=== PATIENT | female | born 1995 | race Caucasian/White ===

== ENCOUNTER 2022-04-16 10:44 | Outpatient (RCR) | payer OTHER, SELFPAY ==
[2022-04-16 12:10] LABS: Hematocrit 31.4 % (37.0-47.0); Hemoglobin 10.6 g/dL (12.0-15.0)
[2022-04-16 12:18] LABS: Glucose 1 Hour PP 50gm Dose 154 mg/dL
[2022-04-16 12:59] LABS: HIV 1/2 Ab P24 Ag Result Negative (Negative)
[2022-04-17] MEDS: RHO(D) IMMUNE GLOBULIN 300 MCG/2 ML SYRINGE IM (13:03)
== END 2022-07-15 23:59 | disposition home or self-care (01) ==
LOC: ANHLAB 10:44
PROVIDERS: Visit Provider Obstetrics & Gynecology
DX: Z11.4 Encounter for screening for human immunodeficiency virus [HIV] (principal); Z29.13 Encounter for prophylactic Rho(D) immune globulin; O36.0130 Maternal care for anti-D [Rh] antibodies, third trimester, not applicable or unspecified; Z3A.00 Weeks of gestation of pregnancy not specified
CPT/HCPCS: 36415; 82947; 85014; 85018; 85461; 86703; 90384; 96372; G0432; J2790

== ENCOUNTER 2022-07-02 08:35 | Outpatient (CLI) | payer OTHER, SELFPAY ==
[2022-07-02 09:15] VITALS: BP 107/69; PULSE 91
[2022-07-02 09:32] VITALS: BP 107/69; PULSE 92
== END 2022-07-02 09:40 | disposition home or self-care (01) ==
LOC: ANHOBOP 09:15 → ANHLDR 09:16
PROVIDERS: Visit Provider Obstetrics & Gynecology
DX: O41.8X90 Other specified disorders of amniotic fluid and membranes, unspecified trimester, not applicable or unspecified (principal); Z3A.00 Weeks of gestation of pregnancy not specified
CPT/HCPCS: 59025; 84112; 99199

== ENCOUNTER 2022-07-07 05:00 | Inpatient (IN) | payer OTHER, SELFPAY ==
[2022-07-07] VITALS (161 sets, daily range): BP systolic 68–139; BP diastolic 35–80; PULSE 58–118; RESP 14–18; TEMP 36.2–37.2; O2SAT 97–100; BMI 30.2
--- NOTE | 2022-07-07 05:21 | LDADM ---
This patient, Arely Kendrick, was admitted to Labor/Delivery/Recovery 106 on 07/07/22 at 05:00. Plans for labor, pain management and were discussed with patient. Patient/family oriented to hospital policies and general routines including ID bracelet, bed and alarms, visiting hours, pain management, procedures, bathroom and other care routines, personal items, smoking policy, room service/diet and guest tray routines, infant security routines, and visiting hours. Patient/Family are encouraged to report perceived risks to care and to ask questions if they do not understand what they are told or what they should do. See OBIX for further documentation.
[2022-07-07 05:36] LABS: Basophils Percent Auto 0.4 % (0.2-1.2); Eosinophils Absolute Auto 0.1 K/mm3 (0-0.3); Eosinophils Percent Auto 0.6 % (0-4.4); Hemoglobin 10.6 g/dL (12.0-15.0); Immature Granulocyte Absolute 0.18 K/mm3 (0.00-0.031); Immature Granulocyte Percent A 1.9 % (0-0.5); Lymphocytes Absolute Auto 1.88 K/mm3 (0.9-3.2); Mean Corpuscular HGB Conc 35.3 g/dl (32-36); Mean Corpuscular Hemoglobin 32.4 pg (26-34); Mean Corpuscular Volume 91.7 fl (80-100); Mean Platelet Volume 9.1 fl (7.4-10.4); Monocytes Absolute Auto 0.7 K/mm3 (0.1-0.6); Monocytes Percent Auto 7.5 % (2.6-8.5); Neutrophils Absolute Auto 6.5 K/mm3 (1.3-6.7); Neutrophils Percent Auto 69.6 % (45.5-73.1); Platelet Count Result 270 k/mm3 (150-375); Red Blood Count 3.27 M/mm3 (4.2-5.4); Red Cell Distribution Width 12.7 % (11.5-14.5); White Blood Count 9.4 K/mm3 (4.5-10.0)
[2022-07-07] MEDS: LACTATED RINGERS 1,000 ML 125 ML IV CONT ×2 (05:42→09:20)
[2022-07-07] MEDS: OXYTOCIN 30 UNITS/NS 500 ML 30 UNITS/500 ML BAG IV CONT (05:42)
[2022-07-07 05:54] LABS: Amphetamine Screen Urine Negative (Negative); Barbiturate Screen Urine Negative (Negative); Benzodiazepines Screen Urine Negative (Negative); Cannabinoid Screen Urine Positive (Negative); Cocaine Screen Urine Negative (Negative); Methadone Screen Urine Negative (Negative); Opiate Screen Urine Negative (Negative); Phencyclidine Screen Urine Negative (Negative)
--- NOTE | 2022-07-07 08:42 | WPDHPUPDATE1 ---
History and Physical Update Update Date/Time: 07/07/22 08:42 27-year-old 1 at 39 week who presents for induction of labor. Pitocin, artificial rupture membranes have been applied. Reassuring heart tones. Expected management, likely epidural. History and Physical has been reviewed, including an updated exam of the patient. There are NO changes in the patient's condition. Risks, benefits, and alternatives have been discussed and questions answered. Patient agrees to proceed with procedure.
--- NOTE | 2022-07-07 09:44 | WPDANESEPP ---
Anes - Eval Pre Procedure Procedure: Labor Epidural Date/Time: 07/07/22 09:44 Preop Diagnosis: Pain during labor Pre Op Diagnosis: IOL Patient Data Age: 27 Gender: F Height: 1.57 m Weight: 75 kg Last Vital Signs Temp 36.8 C 07/07/22 08:33 Pulse 118 H 07/07/22 09:30 Resp 16 07/07/22 05:32 BP 123/70 07/07/22 09:30 Pulse Ox 100 07/07/22 09:43 O2 Del Method Room Air 07/07/22 05:19 Allergies Allergy/AdvReac Type Severity Reaction Status Date / Time amoxicillin Allergy Mild Swelling Verified 07/07/22 05:16 Home Medications Medication Instructions Recorded Confirmed Type prenat.vits,nini,lxx-jyig-jjdby 1 tablet PO DAILY 06/08/22 07/07/22 History Laboratory Tests 07/07/22 07/07/22 07/07/22 05:28 05:28 05:28 WBC 9.4 K/mm3 K/mm3 (4.5-10.0) RBC 3.27 M/mm3 L M/mm3 (4.2-5.4) Hgb 10.6 g/dL L g/dL (12.0-15.0) Hct 30.0 % L % (37.0-47.0) MCV 91.7 fl fl (80-100) MCH 32.4 pg pg (26-34) MCHC 35.3 g/dl g/dl (32-36) RDW 12.7 % % (11.5-14.5) Plt Count 270 k/mm3 k/mm3 (150-375) MPV 9.1 fl fl (7.4-10.4) Immature Gran % (Auto) 1.9 % H % (0-0.5) Neut % (Auto) 69.6 % % (45.5-73.1) Lymph % (Auto) 20.0 % % (18.3-44.2) [place] % (Auto) 7.5 % % (2.6-8.5) Eos % (Auto) 0.6 % % (0-4.4) Baso % (Auto) 0.4 % % (0.2-1.2) Lymph # (Auto) 1.88 K/mm3 K/mm3 (0.9-3.2) [place] # (Auto) 0.7 K/mm3 H K/mm3 (0.1-0.6) Eos # (Auto) 0.1 K/mm3 K/mm3 (0-0.3) Baso # (Auto) 0.0 K/mm3 K/mm3 (0.0-0.1) Abs Immat Gran (auto) 0.18 K/mm3 H K/mm3 (0.00-0.031) Absolute Neuts (auto) 6.5 K/mm3 K/mm3 (1.3-6.7) Absolute Nucleated RBC 0.0 K/mm3 K/mm3 (0.0-0.012) Nucleated RBC % 0.0 % % (0.0-0.2) Urine Opiates Screen Urine Methadone Screen Ur Barbiturates Screen Ur Phencyclidine Scrn Ur Amphetamine Screen U Benzodiazepines Scrn Urine Cocaine Screen U Cannabinoids Screen RPR Pending Blood Type B Negative Antibody Screen Pending 07/07/22 05:28 WBC RBC Hgb Hct MCV MCH MCHC RDW Plt Count MPV Immature Gran % (Auto) Neut % (Auto) Lymph % (Auto) [place] % (Auto) Eos % (Auto) Baso % (Auto) Lymph # (Auto) [place] # (Auto) Eos # (Auto) Baso # (Auto) Abs Immat Gran (auto) Absolute Neuts (auto) Absolute Nucleated RBC Nucleated RBC % Urine Opiates Screen Negative (Negative) Urine Methadone Screen Negative (Negative) Ur Barbiturates Screen Negative (Negative) Ur Phencyclidine Scrn Negative (Negative) Ur Amphetamine Screen Negative (Negative) U Benzodiazepines Scrn Negative (Negative) Urine Cocaine Screen Negative (Negative) U Cannabinoids Screen Positive A (Negative) RPR Blood Type Antibody Screen Patient hx anesthesia problems: none Family hx anesthesia problems: none Results Review: All pre-operative results and documents have been reviewed as part of the pre-operative evaluation. 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
[2022-07-07] MEDS: ONDANSETRON INJ 4 MG/2 ML VIAL IV PUSH (12:56)
--- NOTE | 2022-07-07 14:09 | PM.IMHP ---
H&P: HPI History of Present Illness Date/Time: 07/07/22 14:09 Chief Complaint: Labor Narrative: 27-year-old 1 at 39 weeks gestation who presented in for induction of labor. She has been in labor without problem for few hours until the hand presentation was noticed. heart tones were also nonreassuring with some prolonged heart rate deceleration . She had early heart rate decelerations and late decelerations alternating with each contraction. Attempted to reduce the hand presentation but it was incomplete reduction with the hand alongside the head. The head was malpositioned and abnormal heart tones persisted. She denies any nausea, vomiting, fever, chills. She denies any chest pain or shortness of breath. The procedure were explained the patient in detail. She understands these risks. She understands that injuries may occur that result in hospitalization, more surgery, and severe illness. She understands that her risk of hemorrhage infection. She understands the risks, benefits, and alternatives. She has completed the informed consent process is ready to proceed. Review of Systems Review of Systems: All systems reviewed & are unremarkable except as noted in HPI and below Constitutional: Constitutional: Denies chills, Denies fatigue, Denies fever(s) and Denies weakness Eyes: Eyes: Denies blurry vision, Denies change in vision, Denies loss of peripheral vision, Denies loss of vision, Denies other visual disturbances and Denies eye pain ENT: Denies vertigo, Denies dizziness, Denies hearing loss, Denies mouth pain, Denies nasal obstruction, Denies neck mass and Denies neck pain Cardiovascular: Cardiovascular: Denies chest pain, Denies diaphoresis, Denies syncope, Denies leg edema and Denies dyspnea Respiratory: Respiratory: Denies chest congestion, Denies cough, Denies hemoptysis, Denies dyspnea and Denies wheezing Gastrointestinal: Gastrointestinal: Denies abdominal pain, Denies constipation, Denies diarrhea, Denies nausea and Denies vomiting Genitourinary: Genitourinary: Denies hematuria, Denies change in libido, Denies nocturia, Denies genital lesions, Denies flank pain and Denies urinary urgency Musculoskeletal: Musculoskeletal: Denies abnormal gait, Denies back pain, Denies myalgias, Denies arthralgias, Denies joint swelling, Denies muscle weakness and Denies neck pain Integumentary/Breasts: Skin/Breast: Denies swelling, Denies breast pain, Denies breast mass, Denies dry skin, Denies nipple discharge, Denies unusual bruising and Denies jaundice Neurologic: Denies Neuro-related abnormal movements, Denies Abnormal speech present, Denies abnormal gait, Denies behavioral changes, Denies confusion, Denies vertigo, Denies dizziness, Denies syncope, Denies loss of vision, Denies memory loss, Denies convulsions and Denies weakness Psychiatric: Psychiatric: Denies abnormal sleep pattern, Denies behavioral changes, Denies change in libido, Denies confusion, Denies depression, Denies anhedonia and Denies memory loss Endocrine: Endocrine: Reports no additional endocrine complaints, Denies change in libido and Denies fatigue Hematologic/Lymphatic: Hematologic/Lymphatic: Reports no additional hematologic/lymphatic complaints Allergic/Immunologic: Allergic/Immunologic: Reports no additional allergic/immunologic complaints and Denies wheezing [facility] Family History Family History Other Unknown family medical history Social History Social History Smoking status: Former smoker Tobacco type: cigarettes and e-cigarettes/vaping Second hand tobacco smoke exposure: No Substance use: current Other substance usage details: 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
--- NOTE | 2022-07-07 15:01 | W.PM.PROC2 ---
Procedure Note - Detailed Date of Procedure 07/07/22 Pre-op Diagnosis IOL, malposition of the head, hand presentation, non-reassuring heart tones Post-op Diagnosis Same Procedure Performed Low-transverse section Surgeon Queenie Bravo MD Anesthesia Spinal Indications malpresentation the head, hand presentation, nonreassuring heart tones. Findings Normal gestational maternal anatomy, average size , normal Apgars. Description of Procedure The patient was taken the operating room. She was prepped and draped in dorsal supine position with a leftward tilt. This was done after spinal anesthetic was applied. A low-transverse skin incision was made and carried down till of the fascia with the knife. The fascial incision was made with the knife. The fascial incision was extended laterally with Weber scissors. The fascia was tented upward superiorly and inferiorly the rectus muscles were dissected off bluntly. The rectus muscles were the midline. The preperitoneal fat and peritoneum were dissected open bluntly at the superior aspect of the rectus muscles. The peritoneal incision was extended superior and inferior with good position of bladder. The uterine incision was made with a scalpel down to the level of the amniotic cavity. The amniotic cavity was entered bluntly. The was delivered. The cord was clamped and cut and the was handed off to waiting pediatric staff. Cord bloods were obtained. The placenta was removed manually. The uterus was exteriorized. The uterus was cleared of all clots, debris and membranes. The uterus was closed in 0 Vicryl running lock fashion. An imbricating over a was placed along the incision line as well. The uterus was returned to the abdomen. The gutters were cleared of all clots and debris. The fascia was closed with 0 Vicryl running fashion. The subcutaneous tissue was irrigated pinpoint bleeders were cauterized. The skin was closed with subcuticular absorbable cha. The skin incision line was covered with glue. The patient tolerated the procedure well. She has taken recovery room in stable condition. Sponge lap and needle counts were correct x2. Complications No immediate complications Condition Stable Disposition PACU
--- NOTE | 2022-07-07 15:13 | P.PNAN_ITS ---
Anes - Eval Final PreProcedure Day of Procedure 07/07/22 15:13 Patient weight: overweight Heart: regular rate and rhythm Lungs: clear to auscultation Airway: Mallampati scale class II Neurological: alert and oriented ASA classification: II Emergent: yes Anesthetic plan: proceed Anesthesia type and monitoring: regional epidural Other findings: use existing epid for C/S exam per JA Results Review: All pre-operative results and documents have been reviewed as part of the pre- operative evaluation. Informed Consent: The patient's anesthetic plan and its attendant risks and benefits were discussed with the patient/family/POA. Questions were solicited and answers provided to the satisfaction of the patient/family/POA.
--- NOTE | 2022-07-07 17:25 | PC.NURSE ---
Patient transferred to post room #286 via stretcher. Support person present. Oriented to unit, room, information board, rooming in, admission packet and security measures. Patient verbalizes understanding.
[2022-07-07] MEDS: DOCUSATE SODIUM 100 MG CAPSULE PO (18:53)
[2022-07-07] MEDS: IBUPROFEN 600 MG TABLET PO (18:53)
[2022-07-07] MEDS: HYDROcodone/acetaminophen (*CRX) 5-325 MG TABLET 1 TAB PO (18:54)
[2022-07-07] MEDS: DEXTROSE 5%/0.45% SOD CHL 1,000 ML 125 ML IV CONT (21:00)
[2022-07-08] MEDS: IBUPROFEN 600 MG TABLET PO ×4 (01:27→20:32)
[2022-07-08] MEDS: HYDROcodone/acetaminophen (*CRX) 5-325 MG TABLET 1 TAB PO ×2 (01:27→09:07)
[2022-07-08 04:55] VITALS: BP 80/40; PULSE 58; RESP 16; TEMP 36.7; O2SAT 98
[2022-07-08 05:45] LABS: Hemoglobin 8.3 g/dL (12.0-15.0); Mean Corpuscular HGB Conc 34.6 g/dl (32-36); Mean Corpuscular Hemoglobin 32.8 pg (26-34); Mean Corpuscular Volume 94.9 fl (80-100); Platelet Count Result 228 k/mm3 (150-375); Red Blood Count 2.53 M/mm3 (4.2-5.4); Red Cell Distribution Width 12.9 % (11.5-14.5); White Blood Count 12.3 K/mm3 (4.5-10.0)
[2022-07-08 05:46] LABS: Basophils Percent Auto 0.2 % (0.2-1.2); Eosinophils Percent Auto 0.2 % (0-4.4); Immature Granulocyte Absolute 0.11 K/mm3 (0.00-0.031); Immature Granulocyte Percent A 0.9 % (0-0.5); Lymphocytes Absolute Auto 1.83 K/mm3 (0.9-3.2); Lymphocytes Percent Auto 14.8 % (18.3-44.2); Mean Platelet Volume 9.3 fl (7.4-10.4); Monocytes Absolute Auto 0.8 K/mm3 (0.1-0.6); Monocytes Percent Auto 6.7 % (2.6-8.5); Neutrophils Absolute Auto 9.5 K/mm3 (1.3-6.7); Neutrophils Percent Auto 77.2 % (45.5-73.1)
[2022-07-08 08:30] VITALS: BP 92/45; PULSE 72; RESP 20; TEMP 36.9; O2SAT 100
[2022-07-08] MEDS: POLYSACCHARIDE IRON COMPLEX 150 MG CAPSULE PO ×2 (09:06→16:47)
[2022-07-08] MEDS: MULTIVIT/MIN/PREN/FOL AC/IRON TABLET 1 TAB PO (09:06)
[2022-07-08] MEDS: DOCUSATE SODIUM 100 MG CAPSULE PO ×2 (09:07→16:47)
--- NOTE | 2022-07-08 10:19 | PM.OBPNVD ---
OB - PN: Subj Subjective Date/time seen: 07/08/22 10:19 Patient comments: no complaints, pain well controlled, tolerating diet and flatus present OB - PN: Obj Data Labs CBC & Chem 7: 07/08/22 05:28 Labs: Laboratory Results - last 24 hr 07/07/22 07/08/22 05:28 05:28 WBC 12.3 H RBC 2.53 L Hgb 8.3 L Hct 24.0 L MCV 94.9 MCH 32.8 MCHC 34.6 RDW 12.9 Plt Count 228 MPV 9.3 Immature Gran % (Auto) 0.9 H Neut % (Auto) 77.2 H Lymph % (Auto) 14.8 L [place] % (Auto) 6.7 Eos % (Auto) 0.2 Baso % (Auto) 0.2 Lymph # (Auto) 1.83 [place] # (Auto) 0.8 H Eos # (Auto) 0.0 Baso # (Auto) 0.0 Abs Immat Gran (auto) 0.11 H Absolute Neuts (auto) 9.5 H Absolute Nucleated RBC 0.0 Nucleated RBC % 0.0 Blood Type B Negative Antibody Screen Positive Antibody Identification Inconclusive Antigen Identification Cancelled MARTY, Poly Interpret Negative Enhanced Crossmatch See Detail OB - PN A/P Plan day: 1 Comments: Post Op LTCS - no problems, routine recovery Time Spent With Patient Time: Total time spent is greater than 50% in coordination of care (as documented) at patient's floor/unit and/or counseling patient: Exam Const: General: cooperative, healthy appearing, comfortable and no acute distress Resp: Auscultation: no crackles, no rales, no rhonchi and no wheezes Cardio: Rhythm: regular rhythm Heart sounds: no click and no murmurs GI: Inspection: non-distended Auscultation: normal bowel sounds Extrem: General: normal to inspection, no pedal edema and no calf tenderness
[2022-07-08 12:15] VITALS: BP 95/49; PULSE 82; RESP 16; TEMP 36.7; O2SAT 100
[2022-07-08] MEDS: HYDROcodone/acetaminophen (*CRX) 10-325 MG TABLET 1 TAB PO ×2 (12:29→16:48)
--- NOTE | 2022-07-08 14:11 | WPDANLDPN2 ---
Anes-Prog Note L&D Date/Time: 07/08/22 14:11 Comfortable throughout: labor and section Neuraxial method: epidural Epidural/Spinal procedure site: clean & non-tender Neuro status: Neuro function grossly intact. Cardiovascular status: normal Respiratory status: normal Airway patency: baseline Mental status: baseline Post-Op hydration status: normal Vital Signs: Last Vital Signs Temp 98.0 F 07/08/22 12:15 Pulse 82 07/08/22 12:15 Resp 16 07/08/22 12:15 BP 95/49 L 07/08/22 12:15 Pulse Ox 100 07/08/22 12:15 O2 Del Method Room Air 07/08/22 04:55 Pain score (VAS): 0/10 I/O: Intake & Output 07/07/22 07/08/22 07/08/22 23:59 07:59 15:59 Intake Total 880 480 Output Total 600 950 Balance -600 -70 480 Post-procedural complaints: none Patient feedback: Patient satisfied with anesthetic care.
--- NOTE | 2022-07-08 14:12 | WPDANLDNPN2 ---
Anes-Prog Note L&D-Neuraxial Date/Time: 07/08/22 14:12 Neuraxial medications: epidural PF morphine Opiod-related complaints: none Patient feedback: Patient satisfied with post-operative pain management.
[2022-07-08 20:22] VITALS: BP 87/43; PULSE 76; RESP 16; TEMP 36.7; O2SAT 97
[2022-07-09] MEDS: IBUPROFEN 600 MG TABLET PO ×4 (01:51→20:01)
[2022-07-09] MEDS: HYDROcodone/acetaminophen (*CRX) 5-325 MG TABLET 1 TAB PO ×2 (01:52→14:05)
[2022-07-09 07:13] LABS: Rapid Plasma Reagin Non-Reactive (NonReactive)
[2022-07-09 07:45] VITALS: BP 93/42; PULSE 75; RESP 16; TEMP 37.1; O2SAT 100
--- NOTE | 2022-07-09 08:14 | PM.OBPNVD ---
OB - PN: Subj Subjective Date/time seen: 07/09/22 08:14 Patient comments: no complaints, pain well controlled, incisional pain, tolerating diet and flatus present OB - PN: Obj Data Labs CBC & Chem 7: 07/08/22 05:28 Labs: Laboratory Results - last 24 hr 07/07/22 05:28 RPR Non-reactive OB - PN A/P Plan day: 2 Plan: routine care Comments: POD#2 LTCS - no problems, Time Spent With Patient Time: Total time spent is greater than 50% in coordination of care (as documented) at patient's floor/unit and/or counseling patient: Exam Const: General: comfortable, no acute distress and alert Resp: Effort & Inspection: normal respiratory effort Auscultation: no crackles, no rales and no rhonchi Cardio: Rate: regular rate Heart sounds: no click, no murmurs and no rubs GI: Inspection: non-distended GI Palp: No Tenderness to palpation present (GI) Auscultation: normal bowel sounds Other: Incision - CDI Extrem: General: normal to inspection, no pedal edema and no calf tenderness
[2022-07-09 09:00] VITALS: PULSE 75; RESP 16; O2SAT 100
[2022-07-09] MEDS: SIMETHICONE 80 MG TAB.CHEW PO (14:05)
[2022-07-09 19:45] VITALS: BP 96/49; PULSE 69; RESP 16; TEMP 36.9; O2SAT 100
[2022-07-09] MEDS: DOCUSATE SODIUM 100 MG CAPSULE PO (20:01)
[2022-07-09] MEDS: POLYSACCHARIDE IRON COMPLEX 150 MG CAPSULE PO (20:09)
[2022-07-10] MEDS: HYDROcodone/acetaminophen (*CRX) 5-325 MG TABLET 1 TAB PO ×2 (00:16→07:04)
[2022-07-10] MEDS: MULTIVIT/MIN/PREN/FOL AC/IRON TABLET 1 TAB PO ×2 (00:17→07:08)
[2022-07-10 07:00] VITALS: PULSE 65; RESP 16; O2SAT 100
[2022-07-10] MEDS: IBUPROFEN 600 MG TABLET PO (07:04)
[2022-07-10] MEDS: SIMETHICONE 80 MG TAB.CHEW PO (07:04)
[2022-07-10] MEDS: POLYSACCHARIDE IRON COMPLEX 150 MG CAPSULE PO (07:08)
[2022-07-10] MEDS: DOCUSATE SODIUM 100 MG CAPSULE PO (07:08)
[2022-07-10 08:00] VITALS: BP 123/53; PULSE 65; RESP 16; TEMP 37.3; O2SAT 100
--- NOTE | 2022-07-10 09:52 | PM.OBPNVD ---
OB - PN: Subj Subjective Date/time seen: 07/10/22 09:52 Patient comments: no complaints, pain well controlled, incisional pain, tolerating diet and flatus present OB - PN: Obj Data Labs CBC & Chem 7: 07/08/22 05:28 OB - PN A/P Plan day: 3 Plan: routine care, discharge home and other Comments: Incision check in one week. Given precautions Time Spent With Patient Time: Total time spent is greater than 50% in coordination of care (as documented) at patient's floor/unit and/or counseling patient: Exam Const: General: comfortable, no acute distress and alert Resp: Effort & Inspection: normal respiratory effort Auscultation: no crackles, no rales and no rhonchi Cardio: Rate: regular rate Heart sounds: no click, no murmurs and no rubs GI: Inspection: non-distended GI Palp: No Tenderness to palpation present (GI) Auscultation: normal bowel sounds Other: Incision - CDI Extrem: General: normal to inspection, no pedal edema and no calf tenderness
--- NOTE | 2022-07-10 09:53 | PM.OBDSVD ---
DS: Admitting Diagnosis Discharge Date July 10, 2022 Admitting Diagnosis term OB - DS: Summary OB Procedures : None OB Procedures Intrapartum: OB Procedures: : None Peripartum Data Procedures: Procedures Operation Date: 07/07/22 14:15 Actual Procedure Side Surgeon p Section Bilateral Queenie Bravo MD Time Spent with Patient Time attestation: Total time spent providing and/or coordinating discharge services: Discharge Plan Discharge Discharging Clinician: Queenie Bravo Patient Disposition: Home, Self-Care Activity: pelvic rest Diet: regular Patient Instructions: Antibiotic Form Stand Alone Forms: General Discharge Information Follow-up/Referrals: Queenie Bravo MD [Physician] - Discharge Medications: New hydrocodone-acetaminophen 5-325 mg tablet 1 tablet PO Q4H PRN (Reason: pain) Qty: 25 0RF Continued #2 Tablet 1 tablet PO DAILY Date of admission: 07/07/22 05:00 Primary Care Provider: UNKNOWN,DOCTOR Admitting Provider: Shanell Lomas Attending physician on admission: Shanell Lomas Condition: Stable
--- NOTE | 2022-07-10 10:41 | PC.NURSE ---
[id number] Introductions were made, then consulted with patient to assess needs related to . Mother led the conversation with her?plans to feed?her infant and the?experience so far. Resources provided for inpatient and outpatient services using mom/baby guide. Mother voiced understanding of information and states she is well. There is initial discomfort, then it subsides . Mother demonstrated effectively latching to the left breast using cross cradle positioning. Reminded parents to use good handwashing technique to prevent infection. Mother is feeding appropriately for growth of and understands stimulating infant to eat if needed. Infant has had appropriate feedings in the last 24 hours meets the outcomes for weight, output and jaundice at this time. Mother states she is confident to continue effectively her infant at home or when to call for assistance and denies any additional assistance or education at this time. Reinforced understanding of milk production, transition of milk, signs of adequate intake, prevention/relief of engorgement, responsive after visualizing feeding cues, the different methods of stimulating infant to breastfeed 2-3 hours after the start of the last feeding, community resources, medication information reviewed per [employer] and when to call a provider using the resource of the mom and baby guide/[facility] website. Mother voiced understanding of the education shared. Reported to the primary RN.
== END 2022-07-10 11:30 | disposition home or self-care (01) | DRG 540 ==
LOC: ANHOB2 07-10 10:23 → ANHLDR 07-12 07:09 → ANHOB2 07-12 07:09
PROVIDERS: Admitting Provider Obstetrics & Gynecology; Visit Provider Obstetrics & Gynecology
PROC: 10D00Z1 Extraction of Products of Conception, Low, Open Approach (ICD-10-PCS; CPT 59514; principal; 2022-07-07 14:15)
DX: O32.2XX0 Maternal care for transverse and oblique lie, not applicable or unspecified (principal); O69.81X0 Labor and delivery complicated by cord around neck, without compression, not applicable or unspecified; O77.0 Labor and delivery complicated by meconium in amniotic fluid; O76 Abnormality in fetal heart rate and rhythm complicating labor and delivery; Z3A.39 39 weeks gestation of pregnancy; Z37.0 Single live birth
CPT/HCPCS: 36415; 80307; 85025; 86592; 86850; 86880; 86900; 86901; 86922; A9270; J0131; J1100; J2274; J2405; J2590; J2795; J7120